=== PATIENT | male | born 1935 | race Two or more races ===

== ENCOUNTER 2022-05-27 07:25 | Day surgery (SDC) | payer OTHER | END 2022-05-27 11:25 | disposition home or self-care (01) | LOC: AMB-ENDOS 07:25 | PROVIDERS: ATTEND Surgery | DX: D12.2 Benign neoplasm of ascending colon (principal); Z20.822 Contact with and (suspected) exposure to COVID-19; K57.30 Diverticulosis of large intestine without perforation or abscess without bleeding ==